=== PATIENT | female | born 1970 | race Two or more races ===

== ENCOUNTER 2025-02-10 16:00 | Emergency (ER) | payer OTHER ==
[~2025-02-10] VITALS: Ht 152.4 cm; Wt 63.0 kg
[2025-02-10 17:55] VITALS: BP 167/71; PULSE 66; RESP 17; TEMP 98.4; O2SAT 99
[2025-02-10 18:11] LABS: GLUCOMETER DEV NAME(LOC) ERT.7; GLUCOSE,POINT OF CARE 100 MG/DL (70-110)
[2025-02-10] MEDS: ONDANSETRON HCL 4 MG/2 ML VIAL IVP ONE (18:11)
[2025-02-10] MEDS ORDERED: CAPT25TA PO (18:33)
[2025-02-10] MEDS ORDERED: METF-1185 PO (18:33)
[2025-02-10] MEDS ORDERED: GLYB5TAB9 PO (18:33)
[2025-02-10 18:41] LABS: PLATELET COUNT (AUTO) 299 K/uL (150-450); RED BLOOD CELL COUNT(AUTO) 4.02 MIL/uL (4.00-5.20); RED CELL DISTRIBUTION WIDTH 14.4 % (11.5-14.5); WHITE BLOOD COUNT (AUTO) 6.7 K/uL (4.5-11.0)
[2025-02-10 18:46] LABS: CALCIUM, TOTAL 9.6 mg/dL (8.8-10.5); CREATININE 2.32 mg/dL (0.60-1.30); GLOMERULAR FILTR. RATE CALC 22.0 mL/min (>60); GLUCOSE,RANDOM 104.0 mg/dL (70-110); SODIUM SERUM 140.0 mmol/L (136-145); UREA NITROGEN, BLOOD 37.0 mg/dL (7-18)
[2025-02-10 18:50] LABS: PHOSPHORUS 5.7 mg/dL (2.5-4.9)
[2025-02-10 19:56] LABS: APPEARANCE,URINE CLEAR (CLEAR); GLUCOSE, URINE (UA) 300-500 mg/dL (NEGATIVE); LEUKOCYTE ESTERASE ,URINE SMALL (NEGATIVE); NITRATE,URINE NEGATIVE (NEGATIVE); OCCULT BLOOD,URINE NEGATIVE (NEGATIVE); SPECIFIC GRAVITIY, URINE 1.009 (1.003-1.030)
[2025-02-10 20:23] LABS: SQUAMOUS EPITHELIAL CELL,UR Few /LPF (None Seen)
[2025-02-10 20:44] LABS: SULFOSALICYLIC ACID,URINE 1+ (Negative)
== END 2025-02-10 23:09 ==
LOC: EMS 17:09
DX: N19 Unspecified kidney failure (principal); K59.00 Constipation, unspecified; E11.29 Type 2 diabetes mellitus with other diabetic kidney complication; I10 Essential (primary) hypertension; Z98.890 Other specified postprocedural states; Z79.899 Other long term (current) drug therapy; Z87.442 Personal history of urinary calculi; Z90.5 Acquired absence of kidney; Z88.0 Allergy status to penicillin
CPT/HCPCS: 99284; 96374; 80048; 81001; 82962; 83735; 84100; 85025; 36415; 74018; J2405; 81002